=== PATIENT | female | born 1960 | race African-American/Black ===

== ENCOUNTER 2021-10-29 05:26 | Inpatient (IN) | payer MEDICARE, OTHER ==
[~2021-10-29] VITALS: Ht 154.9 cm; Wt 152.4 kg
[~2021-10-29 05:26] MED LIST: BENA-8; CEPH500T; FAMO-287; NAPR-677
[2021-10-29] MEDS ORDERED: PANT40TA51 PO (05:35)
[2021-10-29] MEDS ORDERED: GABA-532 PO (05:35)
[2021-10-29] MEDS ORDERED: ATOR80TA PO (05:35)
[2021-10-29] MEDS ORDERED: ASPI-1497 PO (05:35)
[2021-10-29] MEDS ORDERED: CHOL100046 PO (05:35)
[2021-10-29] MEDS ORDERED: METO-385 PO (05:35)
[2021-10-29] MEDS ORDERED: SODIUM CHLORIDE 0.9% 1,000 ML IV SCH (06:40)
[2021-10-29] MEDS ORDERED: GENTAMICIN SULF 40MG/ML 2ML VIAL ONE (06:45)
[2021-10-29] MEDS ORDERED: LIDOCAINE HCL/EPINEPHRINE 1%-EPI 1:100,000 20 ML VIAL ONE (06:45)
[2021-10-29] MEDS ORDERED: THROMBIN (BOVINE) 5000 UNITS/VIAL TOP ONE (06:45)
[2021-10-29] MEDS ORDERED: ROCURONIUM BROMIDE 10MG/ML VIAL 5ML IV ONE ×2 (07:11→08:05)
[2021-10-29] MEDS ORDERED: FERR325T6 PO (07:29)
[2021-10-29] MEDS ORDERED: ACET-2708 PO (07:29)
[2021-10-29] MEDS ORDERED: NITR0.4T49 SL (07:29)
[2021-10-29] MEDS ORDERED: FENTANYL CITRATE/PF 50MCG/ML 2ML VIAL ONE (07:49)
[2021-10-29] MEDS ORDERED: DEXAMETHASONE 4MG/ML 1ML VIAL ONE (07:49)
[2021-10-29] MEDS ORDERED: CEFAZOLIN SODIUM 1000MG/VIAL ONE (07:49)
[2021-10-29] MEDS ORDERED: ALBUMIN HUMAN 25GM/100ML (25%) IV ONE (08:01)
[2021-10-29] MEDS ORDERED: NEOSTIGMINE METHYLSULFATE 1MG/ML 10 ML VIAL ONE (09:18)
[2021-10-29] MEDS ORDERED: GLYCOPYRROLATE 0.2 MG/ML 2ML VIAL ONE ×3 (09:18)
[2021-10-29] MEDS ORDERED: HYDRALAZINE 20MG/ML VIAL IV PRN (09:30)
[2021-10-29] MEDS ORDERED: HYDRALAZINE 20MG/ML VIAL ONE ×2 (09:31→09:55)
[2021-10-29] MEDS ORDERED: PROPOFOL 10MG/ML 100ML 100 ML IV PRN (10:15)
[2021-10-29] MEDS ORDERED: PROPOFOL 10MG/ML 100ML 100 ML IV SCH (10:15)
[2021-10-29 10:32] LABS: BG BASE EXCESS -0.9 mmol/L (-2.0-2.0); BG CARBOXYHEMOGLOBIN 0.2 % (0.5-1.5); BG DEOXYHEMOGLOBIN 0.6 % (0.0-5.0); BG FRACTION INSPIRED OXYGEN 100; BG HCO3 ACT 24.4 mmol/L (22.0-26.0); BG METHEMOGLOBIN 0.2 % (0.0-1.5); BG OXYGEN SATURATION 99.4 % (92.0-98.5); BG PCO2 42.9 mmHg (35.0-45.0); BG PH 7.373 (7.350-7.450); BG PO2 365.5 mmHg (75.0-100.0); BG SAMPLE SITE ALINE; BG TOTAL HEMOGLOBIN 11.7 g/dL (12.0-18.0); BG VENT MODE VENT - AC
[2021-10-29] MEDS: HYDRALAZINE 20MG/ML VIAL IV PRN ×6 (10:54→12:34)
[2021-10-29] MEDS ORDERED: ONDANSETRON HCL 4MG/2ML INJ IM NR (12:00)
[2021-10-29] MEDS ORDERED: NALOXONE HCL 0.4MG/ML VIAL IV PRN ×2 (12:45)
[2021-10-29] MEDS ORDERED: FENTANYL CITRATE/PF 50MCG/ML 2ML VIAL IV PRN ×2 (12:45)
[2021-10-29] MEDS ORDERED: CEFAZOLIN SODIUM 1000MG/VIAL IV SCH (14:00)
[2021-10-29] MEDS: MORPHINE SULFATE 4 MG/ML CPJ (NOT FOR IM USE) IV PRN ×2 (15:15→19:36)
[2021-10-29] MEDS: CEFAZOLIN 1000MG PREMIX 50 ML IV SCH ×2 (16:24→23:12)
[2021-10-29 17:58] VITALS: BP 132/66
[2021-10-29 20:00] VITALS: BP 114/56
[2021-10-29] MEDS: HYDROCODONE/ACETAMINOPHEN 5/325MG TABLET PO PRN (23:06)
[2021-10-29] MEDS: DEXT 5%/LACTATED RINGERS 1,000 ML IV SCH (23:14)
[2021-10-30] VITALS: BP 115/58
[2021-10-30] MEDS: MORPHINE SULFATE 4 MG/ML CPJ (NOT FOR IM USE) IV PRN ×7 (01:31→20:02)
[2021-10-30 04:00] VITALS: BP 104/57
[2021-10-30] MEDS: CEFAZOLIN 1000MG PREMIX 50 ML IV SCH ×2 (05:57→16:55)
[2021-10-30] MEDS: DEXT 5%/LACTATED RINGERS 1,000 ML IV SCH (05:58)
[2021-10-30] MEDS ORDERED: SODIUM CHLORIDE 0.9% 1,000 ML IV SCH (12:15)
[2021-10-30] MEDS: METOPROLOL TARTRATE 25MG TABLET PO SCH ×2 (14:41→21:00)
[2021-10-30] MEDS: PANTOPRAZOLE 40MG DR TABLET PO SCH (14:41)
[2021-10-30] MEDS: HYDROCODONE/ACETAMINOPHEN 5/325MG TABLET PO PRN ×2 (15:14→22:25)
[2021-10-30] MEDS ORDERED: HYDRALAZINE 5 MG in SODIUM CHLORIDE 0.9% 49.5 ML IV PRN (17:00)
[2021-10-30 20:00] VITALS: BP 154/64
[2021-10-30] MEDS: ATORVASTATIN CALCIUM 40MG TABLET PO SCH (20:56)
[2021-10-31] VITALS: BP 162/64
[2021-10-31] MEDS: MORPHINE SULFATE 4 MG/ML CPJ (NOT FOR IM USE) IV PRN ×7 (01:40→22:54)
[2021-10-31] MEDS: HYDROCODONE/ACETAMINOPHEN 5/325MG TABLET PO PRN (03:44)
[2021-10-31 04:00] VITALS: BP 176/75
[2021-10-31 08:00] VITALS: BP 190/95
[2021-10-31] MEDS: PANTOPRAZOLE 40MG DR TABLET PO SCH (08:35)
[2021-10-31] MEDS: METOPROLOL TARTRATE 25MG TABLET PO SCH ×2 (08:36→20:15)
[2021-10-31 09:12] LABS: BASOPHILS % 0.7 % (0.0-2.0); HEMATOCRIT. 39.9 % (36.0-48.0); HEMOGLOBIN. 13.2 g/dL (12.0-16.0); MEAN CORPUSCULAR VOLUME 87.4 fL (81.0-99.0); MEAN PLATELET VOLUME 7.8 fl (7.4-10.4); MONOCYTES % 12.5 % (2.0-8.0); NEUTROPHILS % 67.8 % (40.0-76.0); PLATELET 332 x1000/uL (130-400); RED BLOOD CELL COUNT 4.56 mill/uL (4.2-5.4); RED CELL DISTRIBUTION WIDTH 15.7 % (11.6-14.6)
[2021-10-31 09:29] LABS: CHLORIDE 102 mEq/L (98-107)
[2021-10-31 09:41] LABS: HDL CHOLESTEROL 55 mg/dL (40-59); LDL CHOLESTEROL 87 mg/dL (5-100)
[2021-10-31 16:00] VITALS: BP 180/82
[2021-10-31] MEDS ORDERED: ACETAMINOPHEN 325MG TABLET PO PRN (16:15)
[2021-10-31] MEDS ORDERED: CLONIDINE 0.1MG TABLET PO PRN (16:15)
[2021-10-31 20:00] VITALS: BP 126/94
[2021-10-31] MEDS: ATORVASTATIN CALCIUM 40MG TABLET PO SCH (20:15)
[2021-11-01] VITALS: BP 119/56
[2021-11-01] MEDS: MORPHINE SULFATE 4 MG/ML CPJ (NOT FOR IM USE) IV PRN ×7 (02:12→16:54)
[2021-11-01 04:00] VITALS: BP 140/71
[2021-11-01 07:29] LABS: EOSINOPHILS % 0.5 % (0.0-5.0); HEMATOCRIT. 38.8 % (36.0-48.0); HEMOGLOBIN. 13.2 g/dL (12.0-16.0); LYMPHOCYTES % 22.5 % (20.0-50.0); MEAN CORPUSCULAR HEMOGLOBIN 29.4 pg (28.0-32.0); MEAN CORPUSCULAR VOLUME 86.6 fL (81.0-99.0); MEAN PLATELET VOLUME 7.9 fl (7.4-10.4); MONOCYTES % 13.2 % (2.0-8.0); NEUTROPHILS % 62.8 % (40.0-76.0); PLATELET 292 x1000/uL (130-400); RED BLOOD CELL COUNT 4.48 mill/uL (4.2-5.4); RED CELL DISTRIBUTION WIDTH 15.5 % (11.6-14.6)
[2021-11-01 08:00] VITALS: BP 138/73
[2021-11-01 08:23] LABS: CHLORIDE 100 mEq/L (98-107)
[2021-11-01] MEDS: METOPROLOL TARTRATE 25MG TABLET PO SCH ×2 (09:11→22:03)
[2021-11-01] MEDS: FAMOTIDINE 20MG TABLET PO SCH ×2 (09:12→22:03)
[2021-11-01 12:00] VITALS: BP 139/72
[2021-11-01] MEDS ORDERED: POTASSIUM CHLORIDE 20MEQ TABLET SR PO NR ×2 (13:30→18:00)
[2021-11-01] MEDS ORDERED: HYDR-4001 PO (15:08)
[2021-11-01 16:00] VITALS: BP 123/57
[2021-11-01] MEDS: HYDROCODONE/ACETAMINOPHEN 5/325MG TABLET PO PRN (19:13)
[2021-11-01] MEDS: ATORVASTATIN CALCIUM 40MG TABLET PO SCH (22:02)
[2021-11-01 22:16] VITALS: BP 161/83
[2021-11-02] MEDS: HYDROCODONE/ACETAMINOPHEN 5/325MG TABLET PO PRN ×4 (00:36→23:09)
[2021-11-02 02:34] VITALS: BP 117/53
[2021-11-02 04:34] VITALS: BP 161/87
[2021-11-02] MEDS: MORPHINE SULFATE 4 MG/ML CPJ (NOT FOR IM USE) IV PRN ×3 (05:57→16:10)
[2021-11-02 08:00] VITALS: BP 138/66
[2021-11-02] MEDS: FAMOTIDINE 20MG TABLET PO SCH ×2 (09:03→21:49)
[2021-11-02] MEDS: METOPROLOL TARTRATE 25MG TABLET PO SCH ×2 (09:03→21:49)
[2021-11-02 12:00] VITALS: BP 128/62
[2021-11-02 16:00] VITALS: BP 114/75
[2021-11-02 19:56] LABS: BASOPHILS % 0.8 % (0.0-2.0); EOSINOPHILS % 1.3 % (0.0-5.0); HEMATOCRIT. 38.5 % (36.0-48.0); HEMOGLOBIN. 12.8 g/dL (12.0-16.0); LYMPHOCYTES % 25.6 % (20.0-50.0); MEAN CORPUSCULAR HEMOGLOBIN 29.2 pg (28.0-32.0); NEUTROPHILS % 59.3 % (40.0-76.0); PLATELET 340 x1000/uL (130-400); RED BLOOD CELL COUNT 4.38 mill/uL (4.2-5.4); RED CELL DISTRIBUTION WIDTH 15.4 % (11.6-14.6)
[2021-11-02 20:00] VITALS: BP 115/64
[2021-11-02 20:07] LABS: CHLORIDE 101 mEq/L (98-107)
[2021-11-02] MEDS: ATORVASTATIN CALCIUM 40MG TABLET PO SCH (21:48)
[2021-11-03] VITALS: BP 139/51
[2021-11-03] MEDS: MORPHINE SULFATE 4 MG/ML CPJ (NOT FOR IM USE) IV PRN ×2 (03:30→06:05)
[2021-11-03 04:00] VITALS: BP 131/59
[2021-11-03 08:00] VITALS: BP 127/68
[2021-11-03] MEDS: HYDROCODONE/ACETAMINOPHEN 5/325MG TABLET PO PRN (09:06)
[2021-11-03] MEDS: FAMOTIDINE 20MG TABLET PO SCH (09:06)
[2021-11-03] MEDS: METOPROLOL TARTRATE 25MG TABLET PO SCH (09:07)
[2021-11-03 12:00] VITALS: BP 139/72
[2021-11-03 15:13] VITALS: BP 127/68
[2021-11-03 16:00] VITALS: BP 130/70
== END 2021-11-03 16:15 | disposition home or self-care (01) | DRG 519 ==
LOC: OR 05:26 → 6EST 13:35
PROVIDERS: ADMIT Internal Medicine; ATTEND Neurological Surgery
PROC: 01NB0ZZ Release Lumbar Nerve, Open Approach (ICD-10-PCS; principal; 2021-10-29)
PROC: 00NY0ZZ Release Lumbar Spinal Cord, Open Approach (ICD-10-PCS; 2021-10-29)
PROC: 01NR0ZZ Release Sacral Nerve, Open Approach (ICD-10-PCS; 2021-10-29)
PROC: 0SB20ZZ Excision of Lumbar Vertebral Disc, Open Approach (ICD-10-PCS; 2021-10-29)
PROC: 4A11X4G Monitoring of Peripheral Nervous Electrical Activity, Intraoperative, External Approach (ICD-10-PCS; 2021-10-29)
DX: M48.061 Spinal stenosis, lumbar region without neurogenic claudication (principal); G82.20 Paraplegia, unspecified; M51.16 Intervertebral disc disorders with radiculopathy, lumbar region; M47.26 Other spondylosis with radiculopathy, lumbar region; Z20.822 Contact with and (suspected) exposure to COVID-19; E78.5 Hyperlipidemia, unspecified; K21.9 Gastro-esophageal reflux disease without esophagitis; I10 Essential (primary) hypertension; M51.27 Other intervertebral disc displacement, lumbosacral region; Z88.3 Allergy status to other anti-infective agents; Z79.82 Long term (current) use of aspirin; M43.16 Spondylolisthesis, lumbar region
CPT/HCPCS: 36415; 36600; 72100; 76000; 80048; 80053; 80061; 82375; 82805; 83036; 84478; 85025; 86850; 86900; 87426; 88304; 88311; 95863; 95925; 95926; 95928; 95929; 97110; 97116; 97162; 97530; C9803; J0360; J0690; J1100; J1580; J2270; J2405; J2710; J3010; J3490; J7030; J7120; J7121; P9047; A4315